=== PATIENT | female | born 1945 | race Two or more races ===

== ENCOUNTER 2017-04-08 06:12 | Day surgery (SDC) | payer MEDICARE, BC ==
[2017-04-03 14:38] LABS: BASOPHILS % (AUTO) 0.4 % (0-1); EOSINOPHILS # (AUTO) 0.2 X10'3 (0-0.9); EOSINOPHILS % (AUTO) 2.3 % (0-6); LYMPHOCYTES # (AUTO) 1.6 X10'3 (1.1-4.8); LYMPHOCYTES % (AUTO) 24.1 % (21-51); MEAN CORPUSCULAR HEMOGLOBIN 28.3 PG (27.0-31.0); MEAN CORPUSCULAR HGB CONC 32.9 % (33.0-36.5); MEAN CORPUSCULAR VOLUME 86.1 FL (78-98); MEAN PLATELET VOLUME 8.2 FL (7.4-10.4); MONOCYTES # (AUTO) 0.4 X10'3 (0-0.9); MONOCYTES % (AUTO) 5.4 % (2-12); NEUTROPHILS # (AUTO) 4.6 X10'3 (1.8-7.7); NEUTROPHILS % (AUTO) 67.8 % (42-75); PRE OP HEMATOCRIT 35.3 % (35.0-45.0); PRE OP HEMOGLOBIN 11.6 g/dL (12.0-16.0); PRE OP PLATELET COUNT 250 X10'3 (140-440); RED CELL DISTRIBUTION WIDTH 14.3 % (11.5-14.5)
[2017-04-03 14:48] LABS: PRE OP PROTIME 10.7 SECONDS (9.0-12.0)
[2017-04-03 14:54] LABS: ALBUMIN 3.9 G/DL (3.4-5.0); ALBUMIN/GLOBULIN RATIO 1.2 (1.1-1.5); ALKALINE PHOSPHATASE 126 IU/L (46-116); BLOOD UREA NITROGEN 22 MG/DL (7-18); BUN/CREATININE RATIO 18.3 (6.6-38.0); CHLORIDE 107 MMOL/L (99-107); PRE OP ALT 24 U/L (30-65); PRE OP ANION GAP 10 (8-16); PRE OP AST 20 U/L (10-37); PRE OP BILIRUB, TOTAL 0.7 MG/DL (0.0-1.0); PRE OP GLUCOSE 107 MG/DL (70-104); PRE OP POTASSIUM 4.3 MMOL/L (3.4-5.1); PRE OP SODIUM 140 MMOL/L (135-145); TOTAL CARBON DIOXIDE 23.5 MMOL/L (24-32); TOTAL PROTEIN 7.1 G/DL (6.4-8.2); eGFR 44 ML/MIN
[~2017-04-08] VITALS: Ht 157.5 cm; Wt 76.2 kg
[2017-04-08] VITALS (18 sets, daily range): BP systolic 131–175; BP diastolic 65–97
[~2017-04-08 06:12] MED LIST: AMLO1TAB14 PO; ASPI-1265 PO; CALC-1021 PO; CHLO25TA2 PO; CITA40TA22 PO; COROTSUS OT; DOCUMENT DATE & TIME OF BETA-BLOCKER PO ONE; FAMO40TA73 PO; LABE100T PO; LOTLOT EACH EAR; MULT-269 PO; VALA100027 PO; famotidine 20mg tablet PO ONE
[2017-04-08] MEDS ORDERED: ceFAZolin 1000mg inj ONE (06:40)
[2017-04-08] MEDS ORDERED: clindamycin phosphate 40gm vag cream ONE (06:40)
[2017-04-08] MEDS ORDERED: vasoPRESSIN 20 units/ml inj. ONE (06:41)
[2017-04-08] MEDS ORDERED: CEFOXITIN 1000 MG in NS IV.SOLN 100 ML IV ONE (07:25)
[2017-04-08] MEDS: ringers solution, lacted 1,000 ML IV SCH ×4 (07:38→17:03)
[2017-04-08] MEDS ORDERED: fentaNYL/PF 50MCG/1 ML 2ML syringe ONE ×2 (08:19→08:45)
[2017-04-08] MEDS ORDERED: LIDOcaine 2% (20mg/ml) 5ml vial ONE (08:19)
[2017-04-08] MEDS ORDERED: propofol inj 20 ML IV ONE (08:19)
[2017-04-08] MEDS ORDERED: sevoflurane 250ml liquid IH ONE (08:21)
[2017-04-08] MEDS ORDERED: glycopyrrolate 0.2mg/ml inj ONE (08:42)
[2017-04-08] MEDS ORDERED: ePHEDrine 50MG/ML INJ. ONE (08:42)
[2017-04-08] MEDS ORDERED: dexamethasone sod phosphate 4mg/ml inj. ONE (08:42)
[2017-04-08] MEDS ORDERED: ringers solution, lacted 1,000 ML IV SCH (09:12)
[2017-04-08] MEDS ORDERED: HYDROmorphone 1 mg/ml syringe IV PRN ×2 (09:15)
[2017-04-08] MEDS ORDERED: ondansetron/PF 4mg/2ml inj IV PRN ×2 (09:15→09:30)
[2017-04-08] MEDS ORDERED: ondansetron/PF 4mg/2ml inj ONE (09:21)
[2017-04-08] MEDS ORDERED: HYDROcodone/acetaminophen 5mg/325mg tablet PO PRN ×2 (09:30)
[2017-04-08] MEDS ORDERED: naloxone 0.4 mg/ml inj IV PRN (09:30)
[2017-04-08] MEDS ORDERED: albuterol 60 PUFF/8GM Inhaler IH ONE (09:30)
[2017-04-08] MEDS ORDERED: diphenhydrAMINE 50 mg/ml inj IV PRN (09:30)
[2017-04-08] MEDS ORDERED: ketorolac tromethamine 15mg/ml inj. IV PRN (09:30)
[2017-04-08] MEDS ORDERED: magnesium hydroxide 30ml (MOM) UD suspension PO PRN (09:30)
[2017-04-08] MEDS ORDERED: temazepam 15mg capsule PO PRN (09:30)
[2017-04-08] MEDS ORDERED: CADD PCA waste documentation MC PRN (09:30)
[2017-04-08] MEDS ORDERED: normal saline 500ml IV soln 500 ML IV PRN (09:30)
[2017-04-08] MEDS ORDERED: ipratropium/albuterol 3ml nebule IH ONE (09:45)
[2017-04-08] MEDS ORDERED: labetalol 20mg/4ml (5mg/ml) syringe IV ONE (09:45)
[2017-04-08] MEDS: HYDROmorphone/NS 1 mg/ml CADD 50 ML IV SCH ×8 (10:32→23:00)
[2017-04-08] MEDS: simethicone 80mg chew tab PO SCH ×2 (12:48→17:03)
[2017-04-08] MEDS ORDERED: famotidine 20mg tablet PO SCH (21:00)
[2017-04-08] MEDS ORDERED: labetalol 100mg tablet PO SCH (21:00)
[2017-04-08] MEDS ORDERED: citalopram 20mg tablet PO SCH (21:00)
[2017-04-09] MEDS: HYDROmorphone/NS 1 mg/ml CADD 50 ML IV SCH ×4 (01:00→07:00)
[2017-04-09] MEDS: ringers solution, lacted 1,000 ML IV SCH ×2 (01:14→09:27)
[2017-04-09 05:44] LABS: BASOPHILS % (AUTO) 0.1 % (0-1); EOSINOPHILS # (AUTO) 0.1 X10'3 (0-0.9); EOSINOPHILS % (AUTO) 1.4 % (0-6); HEMATOCRIT 29.1 % (35.0-45.0); HEMOGLOBIN 9.7 g/dl (12.0-16.0); LYMPHOCYTES # (AUTO) 1.1 X10'3 (1.1-4.8); LYMPHOCYTES % (AUTO) 10.2 % (21-51); MEAN CORPUSCULAR HEMOGLOBIN 28.5 PG (27.0-31.0); MEAN CORPUSCULAR HGB CONC 33.2 % (33.0-36.5); MEAN CORPUSCULAR VOLUME 85.7 FL (78-98); MEAN PLATELET VOLUME 8.2 FL (7.4-10.4); MONOCYTES # (AUTO) 0.5 X10'3 (0-0.9); MONOCYTES % (AUTO) 5.1 % (2-12); NEUTROPHILS # (AUTO) 8.6 X10'3 (1.8-7.7); NEUTROPHILS % (AUTO) 83.2 % (42-75); PLATELET COUNT 205 X10'3 (140-440); RED CELL DISTRIBUTION WIDTH 14.1 % (11.5-14.5); WHITE BLOOD COUNT 10.3 X10'3 (4.5-11.0)
[2017-04-09] MEDS: simethicone 80mg chew tab PO SCH (07:33)
[2017-04-09 07:42] VITALS: BP 139/71
== END 2017-04-09 15:28 | disposition home or self-care (01) ==
LOC: PAS 06:12 → SUR 3N 11:29 → PAS 04-09 15:28
PROVIDERS: ATTEND Specialist
DX: N81.10 Cystocele, unspecified (principal); N39.3 Stress incontinence (female) (male); N00-N99 Diseases of the genitourinary system; N76.0 Acute vaginitis; Z98.84 Bariatric surgery status; I10 Essential (primary) hypertension; E66.9 Obesity, unspecified; Z79.899 Other long term (current) drug therapy; Z79.82 Long term (current) use of aspirin; M19.90 Unspecified osteoarthritis, unspecified site; D64.89 Other specified anemias; Z68.28 Body mass index [BMI] 28.0-28.9, adult
CPT/HCPCS: 36415; 57240; 57288; 80053; 85025; 85610; 85730; 86885; 86900; 86901; 87070; 94640; A4315; A4344; A4355; A6258; C1771; J0690; J0694; J1100; J1170; J2001; J2405; J2704; J3010; J3490; J7030; J7120; 88302; A6250; A7000

== ENCOUNTER 2023-10-02 23:18 | Inpatient (IN) | payer MEDICARE, BC ==
[~2023-10-02] VITALS: Ht 157.5 cm; Wt 56.8 kg
[~2023-10-02 23:18] MED LIST changes: -DOCUMENT DATE & TIME OF BETA-BLOCKER PO ONE; -LABE100T PO; +LABE100T8 PO; -VALA100027 PO; +VALA100031 PO; -famotidine 20mg tablet PO ONE
[2023-10-03 01:22] LABS: BASOPHILS % (AUTO) 0.2 % (0-1); EOSINOPHILS % (AUTO) 0.1 % (0-6); HEMATOCRIT 27.8 % (35.0-45.0); HEMOGLOBIN 9.2 g/dl (12.0-16.0); LYMPHOCYTES # (AUTO) 0.7 X10'3 (1.1-4.8); LYMPHOCYTES % (AUTO) 6.8 % (21-51); MEAN CORPUSCULAR HEMOGLOBIN 31.9 PG (27.0-31.0); MEAN CORPUSCULAR HGB CONC 33.1 g/dL (33.0-36.5); MEAN CORPUSCULAR VOLUME 96.2 FL (78-98); MEAN PLATELET VOLUME 7.2 FL (7.4-10.4); MONOCYTES # (AUTO) 0.3 X10'3 (0-0.9); MONOCYTES % (AUTO) 2.5 % (2-12); NEUTROPHILS % (AUTO) 90.4 % (42-75); PLATELET COUNT 235 X10'3 (140-440); RED BLOOD COUNT 2.89 X10'6 (4.20-5.60); RED CELL DISTRIBUTION WIDTH 14.4 % (11.5-14.5); WHITE BLOOD COUNT 11.1 X10'3 (4.5-11.0)
[2023-10-03 01:43] LABS: ALBUMIN 3.3 G/DL (3.4-5.0); ANION GAP 9 (8-16); BLOOD UREA NITROGEN 36 MG/DL (7-18); BUN/CREATININE RATIO 39.1 (10.0-20.0); CALCIUM 8.7 MG/DL (8.5-10.1); CHLORIDE 108 MMOL/L (99-107); CREATININE 0.92 MG/DL (0.40-0.90); GLUCOSE 126 MG/DL (70-104); POTASSIUM 3.9 MMOL/L (3.5-5.1); PRO BRAIN NATRIURETIC PEPTIDE 1643 PG/ML (0-450); SODIUM 141 MMOL/L (135-145); TOTAL CARBON DIOXIDE 24.3 MMOL/L (24-32); eCRCL 41 ML/MIN; eGFR 59 ML/MIN
[2023-10-03] MEDS ORDERED: potassium Cl 20 mEq SR tablet PO PRN ×2 (02:35)
[2023-10-03] MEDS ORDERED: potassium Cl 40MEQ/1/2NS 520ml 520 ML IV PRN (02:35)
[2023-10-03] MEDS ORDERED: magnesium sulf-water 4G/100mL 100 ML IV PRN (02:35)
[2023-10-03] MEDS ORDERED: magnesium Cl slow-release 64mg tablet PO PRN (02:35)
[2023-10-03] MEDS ORDERED: magnesium hydroxide 30ml (MOM) UD suspension PO PRN (02:35)
[2023-10-03] MEDS ORDERED: magnesium sulf-water 2g/50mL 50 ML IV PRN (02:35)
[2023-10-03] MEDS ORDERED: ondansetron/PF 4mg/2ml inj IV PRN (02:35)
[2023-10-03] MEDS: PERFLUTREN PROTEIN-A MICROSPHR (Optison) 0.22 MG/ML 3ML VIAL IV ONE (02:48)
[2023-10-03] MEDS ORDERED: PERFLUTREN PROTEIN-A MICROSPHR (Optison) 0.22 MG/ML 3ML VIAL IV PRN (02:51)
[2023-10-03 03:22] LABS: % IRON SATURATION 19 % (11-46); IRON 43 UG/DL (49-151); TOTAL IRON BINDING CAPACITY 232 UG/DL (259-388)
[2023-10-03 03:35] LABS: FERRITIN 126 NG/ML (8-252)
[2023-10-03] MEDS ORDERED: CITA-311 PO (04:55)
[2023-10-03 06:00] VITALS: BP 119/38; PULSE 53; RESP 19; TEMP 97.6; O2SAT 99
[2023-10-03 07:19] LABS: BILIRUBIN,URINE NEGATIVE (Neg); CLARITY,URINE SLIGHTLY CLOUDY (Clear); COLOR,URINE YELLOW (Yellow); GLUCOSE, URINE NEGATIVE (Neg); KETONES,URINE NEGATIVE (Neg); LEUKOCYTE ESTERASE ,URINE TRACE (Neg); NITRITES, URINE NEGATIVE (Neg); OCCULT BLOOD,URINE MODERATE (Neg); PH,URINE 5.5 (4.8-8.0); PROTEIN,URINE NEGATIVE (Neg); UROBILINOGEN,URINE 0.2 E.U/dL (0.2-1.0)
[2023-10-03 07:21] LABS: UA COLLECTION TYPE NON-SPECIFIED
[2023-10-03 07:26] LABS: SQUAMOUS EPITHELIAL CELL,UR MODERATE /LPF (FEW)
[2023-10-03 07:28] LABS: RBC,URINE 50-100 /HPF (0-2)
[2023-10-03 07:31] LABS: BACTERIA,URINE FEW /HPF (Neg)
[2023-10-03 07:38] LABS: TRANSITIONAL EPI CELLS,URINE FEW /HPF
[2023-10-03] MEDS: K and/or MAG REPLACEMENT MC SCH (07:49)
[2023-10-03 08:00] VITALS: BP_SYST 144; BP_SYST 158; BP_DIAS 63; BP_DIAS 69; BP_DIAS 74; PULSE 55; PULSE 62; PULSE 63
[2023-10-03] MEDS: calcium carbonate/vitamin D3 tablet PO SCH (08:18)
[2023-10-03] MEDS: enoxaparin 40mg/0.4ml syringe SUBCUT SCH (08:19)
[2023-10-03 11:00] VITALS: BP 135/48; PULSE 82; RESP 13; TEMP 98; O2SAT 96
[2023-10-03] MEDS: CITALOpram 10mg tablet PO SCH (13:15)
[2023-10-03] MEDS: CefTRIAXone/D5W-Rocephin 1gm 50 ML IV SCH (13:15)
[2023-10-03 15:00] VITALS: BP 140/68; PULSE 55; RESP 11; TEMP 98.4; O2SAT 98
[2023-10-03 18:00] VITALS: BP 141/68; PULSE 61; RESP 13; TEMP 98.6; O2SAT 97
[2023-10-03] MEDS: acetaminophen 325mg tablet PO PRN (19:59)
[2023-10-03] MEDS ORDERED: CITALOPRAM HYDROBROMIDE PO SCH (21:00)
[2023-10-03 22:00] VITALS: BP 141/60; PULSE 62; RESP 19; TEMP 97.3; O2SAT 96
[2023-10-03] MEDS: amLODIPine 5mg tablet PO SCH (22:36)
[2023-10-03] MEDS: aspirin 81mg tab.chew PO SCH (22:37)
[2023-10-03] MEDS: chlorthalidone 25mg tablet PO SCH (22:37)
[2023-10-03] MEDS: famotidine 20mg tablet PO SCH (22:37)
[2023-10-03] MEDS: multivitamins, therapeutics tablet PO SCH (22:38)
[2023-10-03] MEDS: losartan 50mg tablet PO SCH (22:38)
[2023-10-04] VITALS (8 sets, daily range): BP systolic 105–169; BP diastolic 35–77; PULSE 52–67; RESP 12–19; TEMP 97.3–98.8; O2SAT 96–99
[2023-10-04 06:25] LABS: BASOPHILS % (AUTO) 0.5 % (0-1); EOSINOPHILS # (AUTO) 0.1 X10'3 (0-0.9); EOSINOPHILS % (AUTO) 1.7 % (0-6); HEMATOCRIT 27.3 % (35.0-45.0); LYMPHOCYTES % (AUTO) 33.7 % (21-51); MEAN CORPUSCULAR HEMOGLOBIN 31.5 PG (27.0-31.0); MEAN CORPUSCULAR HGB CONC 32.9 g/dL (33.0-36.5); MEAN CORPUSCULAR VOLUME 95.7 FL (78-98); MEAN PLATELET VOLUME 7.6 FL (7.4-10.4); MONOCYTES # (AUTO) 0.4 X10'3 (0-0.9); MONOCYTES % (AUTO) 7.4 % (2-12); NEUTROPHILS # (AUTO) 3.4 X10'3 (1.8-7.7); NEUTROPHILS % (AUTO) 56.7 % (42-75); PLATELET COUNT 226 X10'3 (140-440); RED BLOOD COUNT 2.86 X10'6 (4.20-5.60); RED CELL DISTRIBUTION WIDTH 14.3 % (11.5-14.5); WHITE BLOOD COUNT 6.1 X10'3 (4.5-11.0)
[2023-10-04 06:43] LABS: ANION GAP 10 (8-16); BLOOD UREA NITROGEN 26 MG/DL (7-18); BUN/CREATININE RATIO 28.9 (10.0-20.0); CALCIUM 9.3 MG/DL (8.5-10.1); CHLORIDE 107 MMOL/L (99-107); GLUCOSE 87 MG/DL (70-104); MAGNESIUM 1.6 MG/DL (1.5-2.4); SODIUM 142 MMOL/L (135-145); TOTAL CARBON DIOXIDE 24.8 MMOL/L (24-32); eCRCL 42 ML/MIN; eGFR 61 ML/MIN
[2023-10-04] MEDS: acetaminophen 325mg tablet PO PRN (10:03)
[2023-10-04] MEDS ORDERED: famotidine 20mg tablet PO SCH (14:51)
[2023-10-05] VITALS (7 sets, daily range): BP systolic 94–148; BP diastolic 42–66; PULSE 49–90; RESP 12–15; TEMP 97.3–98.4; O2SAT 96–99
[2023-10-05 06:43] LABS: BASOPHILS % (AUTO) 0.6 % (0-1); EOSINOPHILS # (AUTO) 0.2 X10'3 (0-0.9); EOSINOPHILS % (AUTO) 2.7 % (0-6); HEMATOCRIT 28.4 % (35.0-45.0); HEMOGLOBIN 9.6 g/dl (12.0-16.0); LYMPHOCYTES # (AUTO) 1.8 X10'3 (1.1-4.8); LYMPHOCYTES % (AUTO) 30.2 % (21-51); MEAN CORPUSCULAR HEMOGLOBIN 32.4 PG (27.0-31.0); MEAN CORPUSCULAR HGB CONC 33.7 g/dL (33.0-36.5); MEAN PLATELET VOLUME 7.9 FL (7.4-10.4); MONOCYTES # (AUTO) 0.4 X10'3 (0-0.9); MONOCYTES % (AUTO) 7.1 % (2-12); NEUTROPHILS # (AUTO) 3.6 X10'3 (1.8-7.7); NEUTROPHILS % (AUTO) 59.4 % (42-75); PLATELET COUNT 253 X10'3 (140-440); RED BLOOD COUNT 2.96 X10'6 (4.20-5.60); RED CELL DISTRIBUTION WIDTH 13.9 % (11.5-14.5)
[2023-10-05 06:57] LABS: ANION GAP 7 (8-16); BLOOD UREA NITROGEN 27 MG/DL (7-18); CHLORIDE 106 MMOL/L (99-107); GLUCOSE 89 MG/DL (70-104); MAGNESIUM 1.7 MG/DL (1.5-2.4); POTASSIUM 3.9 MMOL/L (3.5-5.1); SODIUM 141 MMOL/L (135-145); TOTAL CARBON DIOXIDE 28.3 MMOL/L (24-32); eCRCL 42 ML/MIN; eGFR 61 ML/MIN
[2023-10-05 08:55] LABS: ALANINE AMINOTRANSFERASE 25 U/L (12-78); ALKALINE PHOSPHATASE 64 IU/L (46-116); ASPARTATE AMINO TRANSFERASE 16 U/L (10-37); BILIRUBIN,DIRECT 0.2 MG/DL (0-0.3); BILIRUBIN,TOTAL 0.7 MG/DL (0.1-1.0); CHOL/HDL RATIO 2.3 (0.00-4.99); CHOLESTEROL 172 MG/DL (0-200); HDL CHOLESTEROL 75 MG/DL (35-60); LDL CHOLESTEROL 81 MG/DL (50-100); TRIGLYCERIDES 58 MG/DL (20-135)
[2023-10-05] MEDS ORDERED: ATOR20TA66 PO (16:11)
[2023-10-05] MEDS ORDERED: CEFD300C3 PO (16:26)
[2023-10-05] MEDS ORDERED: LACT1CAP65 PO (16:43)
== END 2023-10-05 18:30 | disposition home or self-care (01) | DRG 312 ==
LOC: ER 23:19 → ED HOLD 10-03 02:41 → PCU 3S 10-03 05:05
PROVIDERS: ADMIT Surgery Surgical Critical Care; ATTEND Family Medicine
DX: R55 Syncope and collapse (principal); N39.0 Urinary tract infection, site not specified; R00.1 Bradycardia, unspecified; I10 Essential (primary) hypertension; I65.23 Occlusion and stenosis of bilateral carotid arteries; D64.9 Anemia, unspecified; R56.9 Unspecified convulsions; Z88.5 Allergy status to narcotic agent; Z79.82 Long term (current) use of aspirin; Z79.899 Other long term (current) drug therapy
CPT/HCPCS: 36415; 70450; 70544; 70547; 70551; 71045; 72125; 80048; 80061; 80076; 81001; 82728; 83540; 83550; 83735; 83880; 84466; 84484; 85025; 87081; 87088; 93005; 93306; 93880; 97116; 97161; 99285; G0378; J0696; J1650; J7040

== ENCOUNTER 2024-02-12 10:27 | Outpatient (CLI) | payer MEDICARE, BC ==
[2024-02-04 14:17] LABS: ALBUMIN 3.6 G/DL (3.4-5.0); ANION GAP 10 (8-16); BLOOD UREA NITROGEN 21 MG/DL (7-18); BUN/CREATININE RATIO 20.8 (10.0-20.0); CALCIUM 8.7 MG/DL (8.5-10.1); CHLORIDE 107 MMOL/L (99-107); CREATININE 1.01 MG/DL (0.40-0.90); GLUCOSE 114 MG/DL (70-104); POTASSIUM 3.6 MMOL/L (3.5-5.1); SODIUM 140 MMOL/L (135-145); TOTAL CARBON DIOXIDE 23.5 MMOL/L (24-32); eGFR 53 ML/MIN
[~2024-02-12 10:27] MED LIST changes: +ATOR20TA66 PO; +CITA-311 PO; -CITA40TA22 PO; -COROTSUS OT; -LABE100T8 PO; +LACT1CAP65 PO; -LOTLOT EACH EAR; -VALA100031 PO; +iohexol 350MG/ML 100ml bottle IV ONE
[2024-02-12 11:21] LABS: ALBUMIN 3.3 G/DL (3.4-5.0); ANION GAP 11 (8-16); BLOOD UREA NITROGEN 21 MG/DL (7-18); BUN/CREATININE RATIO 23.3 (10.0-20.0); CALCIUM 8.7 MG/DL (8.5-10.1); CHLORIDE 109 MMOL/L (99-107); GLUCOSE 56 MG/DL (70-104); SODIUM 141 MMOL/L (135-145); TOTAL CARBON DIOXIDE 20.8 MMOL/L (24-32); eGFR 61 ML/MIN
[2024-02-12] MEDS ORDERED: iohexol 350MG/ML 100ml bottle IV ONE (12:36)
== END 2024-02-12 23:59 | disposition home or self-care (01) ==
LOC: RAD 10:27
PROVIDERS: ATTEND Internal Medicine Interventional Cardiology
DX: I65.23 Occlusion and stenosis of bilateral carotid arteries (principal); M47.812 Spondylosis without myelopathy or radiculopathy, cervical region
CPT/HCPCS: 36415; 70498; 80048; Q9967

== ENCOUNTER → 2024-08-06 | Outpatient (CLI) | payer MEDICARE, BC ==
[~2024-08-06] MED LIST changes: -iohexol 350MG/ML 100ml bottle IV ONE
--- NOTE | 2024-08-06 15:22 | RADIOLOGY REPORT ---
INDICATION: PELVIC PAIN,POSTMENOPAUSAL BLEEDING TECHNIQUE: Multiple real-time grayscale transabdominal sonographic images along with color and duplex Doppler of the uterus and ovaries were obtained. COMPARISON: None FINDINGS: The uterus measures 2 x 2 x 3 cm. The endometrial stripe measures 0.2cm. The right ovary measures 2 x 1 x 1 cm. The left ovary measures 1 x 1 x 1 cm. Subsequent color and duplex Doppler interrogation of the ovaries demonstrated symmetric vascular flow to both ovaries, though this does not exclude the possibility of torsion due to the dual blood suppl y. IMPRESSION: 1. Grossly unremarkable pelvic ultrasound.
== END | disposition home or self-care (01) ==
LOC: RAD 12:03
PROVIDERS: ATTEND Physician Assistant
DX: R10.2 Pelvic and perineal pain (principal); N95.0 Postmenopausal bleeding
CPT/HCPCS: 76830; 76856; 93976